=== PATIENT | male | born 1950 | race Caucasian/White ===

== ENCOUNTER 2020-08-09 14:24 | Emergency (ER) | payer OTHER ==
[2020-08-09 15:28] LABS: HEMOGLOBIN 15.9 gm/dl (14.0-17.5); RED BLOOD COUNT 4.78 M/UL (4.20-5.50); WHITE BLOOD COUNT 8.6 K/UL (4.5-11.0)
[2020-08-09 16:06] LABS: BUN/CREATININE RATIO 13 (0-10)
[2020-10-04] MEDS ORDERED: CATAPRES 0.1MG0.1 MG PO (00:06)
== END 2020-08-09 17:36 | disposition home or self-care (01) ==
LOC: ER1 14:24
DX: I10 Essential (primary) hypertension (principal); E87.6 Hypokalemia; E87.1 Hypo-osmolality and hyponatremia; R53.83 Other fatigue
CPT/HCPCS: 71045; 80053; 82550; 82553; 83874; 83880; 84439; 84443; 84484; 85025; 85379; 93005; 99284

== ENCOUNTER 2020-10-03 19:17 | Inpatient (IN) | payer OTHER ==
[~2020-10-03] VITALS: Ht 188 cm; Wt 95.3 kg
[2020-10-03 19:56] LABS: HEMOGLOBIN 16.3 gm/dl (14.0-17.5); RED BLOOD COUNT 4.87 M/UL (4.20-5.50); WHITE BLOOD COUNT 6.1 K/UL (4.5-11.0)
[2020-10-03 20:22] LABS: BUN/CREATININE RATIO 17 (0-10)
[2020-10-04] MEDS ORDERED: BENICAR40 MG PO (00:05)
[2020-10-04] MEDS ORDERED: ELIQUIS5 MG PO (00:05)
[2020-10-04] MEDS ORDERED: ZYLOPRIM 300 M300 MG PO (00:06)
[2020-10-04] MEDS ORDERED: CLONIDINE HCL0.3 MG PO (00:06)
[2020-10-04] MEDS ORDERED: TOPROL XL100 MG PO (00:06)
[2020-10-04] MEDS ORDERED: AMARYL 2MG TABLE2 MG PO (00:07)
[2020-10-04] MEDS ORDERED: ROBAXIN 750 MG750 MG PO (00:07)
[2020-10-04] MEDS ORDERED: DESYREL 50 MG T50 MG PO (00:07)
[2020-10-04] MEDS ORDERED: SOMA350 MG PO (00:08)
[2020-10-04] MEDS ORDERED: OXYMORPHONE HCL10 M1 PO (00:08)
[2020-10-04] MEDS ORDERED: AMLODIPINE BESY10 MG PO (00:09)
[2020-10-04] MEDS ORDERED: OXYCODONE HCL30 MG PO (00:09)
[2020-10-04] MEDS ORDERED: HYDRALAZINE HCL25 MG PO (00:10)
[2020-10-04] MEDS ORDERED: PROCARDIA XL60 MG PO (00:10)
[2020-10-04 05:57] LABS: HEMOGLOBIN 14.7 gm/dl (14.0-17.5); RED BLOOD COUNT 4.48 M/UL (4.20-5.50)
[2020-10-04 05:58] LABS: BUN/CREATININE RATIO 17 (0-10)
[2020-10-05 03:02] LABS: BUN/CREATININE RATIO 14 (0-10)
[2020-10-06 05:51] LABS: BUN/CREATININE RATIO 17 (0-10)
[2020-10-06] MEDS ORDERED: BETAPACE 80MG T80 MG PO (10:16)
[2020-10-06] MEDS ORDERED: VALSARTAN80 MG PO (10:16)
[2020-10-06] MEDS ORDERED: DILTIAZEM 24HR120 M1 PO (10:16)
[2020-10-06] MEDS ORDERED: FUROSEMIDE40 MG PO (10:16)
--- NOTE | 2020-10-06 11:54 | NUR ---
ROOM AIR SAT 87%
[2020-12-28] MEDS ORDERED: ROBAXIN 750 MG750 MG PO (10:20)
[2020-12-28] MEDS ORDERED: VALSARTAN160 MG PO (10:22)
[2020-12-28] MEDS ORDERED: NIFEDIPINE ER60 M1 PO (10:23)
[2020-12-28] MEDS ORDERED: ALLOPURINOL300 MG PO (10:23)
[2020-12-28] MEDS ORDERED: AMARYL2 MG PO (10:25)
[2020-12-28] MEDS ORDERED: NICOTINE GUM4 MG PO (10:26)
== END 2020-10-06 12:27 | disposition home or self-care (01) | DRG 291 ==
LOC: ER1 19:17 → CDU 21:55 → PROG CARE 21:55
PROVIDERS: Emergency Medicine; Internal Medicine; Internal Medicine Cardiovascular Disease; ADMIT Internal Medicine
DX: I11.0 Hypertensive heart disease with heart failure (principal); J96.01 Acute respiratory failure with hypoxia; I24.9 Acute ischemic heart disease, unspecified; E87.2 Acidosis; E87.1 Hypo-osmolality and hyponatremia; Z20.822 Contact with and (suspected) exposure to COVID-19; I48.0 Paroxysmal atrial fibrillation; I50.33 Acute on chronic diastolic (congestive) heart failure; E87.70 Fluid overload, unspecified; I25.10 Atherosclerotic heart disease of native coronary artery without angina pectoris; E11.9 Type 2 diabetes mellitus without complications; M10.9 Gout, unspecified; E66.9 Obesity, unspecified; N28.9 Disorder of kidney and ureter, unspecified; F32.9 Major depressive disorder, single episode, unspecified; F41.9 Anxiety disorder, unspecified; R07.9 Chest pain, unspecified; M54.9 Dorsalgia, unspecified; G89.4 Chronic pain syndrome; E87.6 Hypokalemia; E78.5 Hyperlipidemia, unspecified; F10.10 Alcohol abuse, uncomplicated; R74.01 Elevation of levels of liver transaminase levels; Z79.4 Long term (current) use of insulin; Z68.30 Body mass index [BMI] 30.0-30.9, adult; Z79.01 Long term (current) use of anticoagulants; Z83.3 Family history of diabetes mellitus; Z98.1 Arthrodesis status; Z90.89 Acquired absence of other organs
CPT/HCPCS: ECHO; 36415; 36600; 71045; 71250; 80048; 80053; 80061; 81001; 82550; 82553; 82803; 82962; 83036; 83605; 83690; 83735; 83874; 83880; 84100; 84132; 84439; 84443; 84484; 84550; 85025; 85610; 85730; 87040; 93005; 93306; 94760; 99285; J1160; J2060; Q9967; U0002